=== PATIENT | female | born 1935 | race Caucasian/White ===

== ENCOUNTER 2019-09-24 07:49 | Day surgery (SDC) | payer MEDICARE, OTHER, SELFPAY ==
[2019-09-23 10:04] VITALS: BMI 35.4
[2019-09-24] MEDS: ACETAMINOPHEN 325 MG TABLET 975 MG PO (08:14)
[2019-09-24] MEDS: CELECOXIB 200 MG CAPSULE 400 MG PO (08:14)
[2019-09-24] MEDS: GABAPENTIN 300 MG CAPSULE PO (08:14)
[2019-09-24] MEDS: LACTATED RINGERS 1,000 ML 42 ML IV ×2 (08:15→10:47)
[2019-09-24 08:16] VITALS: BP 178/91; PULSE 74; RESP 15; TEMP 36.6; O2SAT 96; BMI 33.9
--- NOTE | 2019-09-24 08:41 | PM.PREOP ---
Pre-operative Note Interval Note History & Physical reviewed/Exam performed by Physician: Yes Changes to H&P: No
--- NOTE | 2019-09-24 08:41 | PM.OP.1 ---
Operative Date/Time/Diagnoses Date of procedure: 09/24/19 Time of procedure: 08:41 Pre-op diagnosis: Right lateral foot pain, arthritis, impingement Post-op diagnosis: same Procedure & Clinicians Procedure: Right fifth tarsometatarsal and calcaneocuboid arthroplasty with soft tissue graft interposition Same procedure as scheduled: Yes Indications: Painful lateral foot with arthritic changes. Conservative measures failed to alleviate the pain and she wished to have surgical intervention at this time. No contraindications to the procedure at this time. Surgeon: Cassie Hurst Click Yes if Unassisted: Yes Anesthesia Type: General Operative Notes Closure Type: primary Specimen(s): none sent Applied: graft(s) (Integra Reinforcement Matrix ) Estimated Blood Loss (mL): 20 Blood products transfused: none Tourniquet time (min): 59 Procedure in detail: The patient was brought to the operating room and placed on the operating table in the supine position. The tourniquet was placed about the right thigh. Well-padded, appropriately aligned. After induction of anesthesia the right foot and ankle were prepped and draped in the usual aseptic manner. The tourniquet was inflated. Incision was made over the fifth nlepdujbns-hhgubn-jvjghdquu joint. The incision was deepened through subcutaneous tissues being careful to identify and retract all vital neurovascular structures. All bleeders were cauterized and ligated as necessary. Attention was then directed to the calcaneocuboid joint to start and it was noted to have a little bony bossing on the lateral and dorsal portion of the joint. The decision was made to enter this area as she has had pain in this local joint. Entering it it was quite tight where this was located and sharp debridement was performed to allow for a little more opening here and reduction of impingement. Rongeur, osteotome, curette, and manual rasp were used to create less impingement and smooth surface preparation on either side of this joint. The area was irrigated with copious amounts of normal saline. Next the was checked on mini-C-arm to verify location of this joint and the fifth metatarsal-cuboid joint. Next the fifth metatarsal-cuboid joint was entered. Entering it it was quite also quite tight and once again, to allow for a little more opening here and reduction of impingement, a rongeur, osteotome, curette, and manual rasp were used to create less impingement and smooth surface preparation on either side of this joint. The area was irrigated with copious amounts of normal saline. The soft tissue graft was measured for each location and placed in each area with good amount of the space being filled and the graft acting as a cushion, without too much pressure. The surround soft tissues were used to cover over each of these areas to also allow for security of the graft and 3-0 vicryl was used to stabilize and sew it to. No unusual prominences noted and it laid flat in each joint space well. Final C-arm picture was taken. At this point, the tourniquet was deflated and a prompt hyperemic response was seen to the foot. On each of the incisions, the subcutaneous closure was performed using Vicryl and nylon was used to close the skin. A sterile lightly compressive dressing was placed on the foot and placed in a postoperative boot. Pt was transferred to the PACU with vital signs stable and vascular status intact. Complications: none Post-operative Condition: stable Disposition: PACU Plan for aftercare: Following a period of postoperative monitoring, the patient will be discharged to home on written and oral postoperative instructions including keeping the dressing dry and intact, avoiding significant ambulation on the foot, however partial WB with her walker is ok. Icing and elevating the foot when seated home. DVT prevention techniques have been reviewed. For the 1st postoperative visit the dressing will be changed and close to the 3rd postoperative week we will likely remove the sutures.
[2019-09-24] MEDS: CEFAZOLIN 2 GM/100 ML FROZ.PIGGY IV (08:58)
--- NOTE | 2019-09-24 09:35 | SUR.OPER ---
Supine on padded OR bed, head on pillow, arms secured on padded arm boards at <90 degrees abduction, legs uncrossed, safety belt at thigh, tape over blanket over lower legs. gel bump under righ thigh
[2019-09-24] MEDS: BUPIVACAINE 0.5% (PF) VIAL 5 ML SUBCUT (09:41)
[2019-09-24 10:57] VITALS: BP 161/67; PULSE 81; RESP 16; TEMP 37.2; O2SAT 92
[2019-09-24 11:02] VITALS: BP 140/76; PULSE 82; RESP 19; O2SAT 93
[2019-09-24 11:05] VITALS: BP 135/83; PULSE 79; RESP 13; O2SAT 94
[2019-09-24 11:12] VITALS: BP 143/73; PULSE 79; RESP 12; TEMP 36.9; O2SAT 94
[2019-09-24 11:30] VITALS: BP 154/85; PULSE 86; RESP 16; TEMP 36.2; O2SAT 94
== END 2019-09-24 11:40 | disposition home or self-care (01) ==
LOC: OR 07:51
PROVIDERS: Family Provider Internal Medicine; PCP Internal Medicine; Referring Provider Internal Medicine; Visit Provider Podiatrist
PROC: (CPT 26535; principal; 2019-09-24 08:45)
DX: M19.071 Primary osteoarthritis, right ankle and foot (principal); M25.871 Other specified joint disorders, right ankle and foot; I10 Essential (primary) hypertension; R55 Syncope and collapse; R42 Dizziness and giddiness; K21.9 Gastro-esophageal reflux disease without esophagitis
CPT/HCPCS: 28899; J0690; J1100; J2405; J2704; J3010

== ENCOUNTER → 2023-12-31 11:42 | Outpatient (CLI) | payer MEDICARE, OTHER, SELFPAY ==
--- NOTE | 2023-12-31 12:22 | EKG_ITS ---
[address] [address] Test Date: 2023-12-31 Pat Name: Yecenia Ramirez Department: Room: Gender: Female Import Manager: KSENIA : [id number] Requested By: Order Number: [id number] Reading MD: Gonzalez Lees Measurements Intervals [place] Rate: 65 P: 50 ME: 174 QRS: 95 QRSD: 94 T: 38 QT: 420 QTc: 436 Interpretive Statements Sinus rhythm with premature supraventricular complexes Rightward axis Electronically Signed On 12-31-2023 18:40:23 PDT by Gonzalez Lees
[2023-12-31 12:58] LABS: Add Manual Diff / Slide Review NO; Basophils Absolute Auto 100 /uL (0-100); Basophils Percent Auto 1.1 % (0-2); Eosinophils Absolute Auto 200 /uL (0-450); Eosinophils Percent Auto 3.5 % (2-4); Hematocrit 40.6 % (36-46); Hemoglobin 13.7 g/dL (12.0-16.0); Lymphocytes Absolute Auto 2300 /uL (1100-4500); Lymphocytes Percent Auto 40.1 % (25-40); Mean Corpuscular HGB Conc 33.8 % (30-36); Mean Corpuscular Hemoglobin 32.4 PG (26-34); Mean Corpuscular Volume 95.8 fL (80-100); Monocytes Absolute Auto 400 /uL (0-900); Monocytes Percent Auto 7.5 % (3-14); Neutrophils Absolute Auto 2800 /uL (1500-7000); Neutrophils Percent Auto 47.8 % (50-75); Platelet Count 292 X10^3/uL (150-400); Red Blood Cell Count 4.24 X10^6/uL (4.0-5.2); Red Cell Distribution Width 13.2 % (11.6-14.8); White Blood Cell Count 5.8 X10^3/uL (4.5-11.0)
[2023-12-31 13:17] LABS: Hemoglobin A1C% w Est Avg Glu 5.7 % (4.0-6.0)
[2023-12-31 13:24] LABS: Albumin 4.8 g/dL (3.5-5.0); BUN Creatinine Ratio 26.3 (6-22); Blood Urea Nitrogen 30 mg/dL (7-17); Calcium 9.8 mg/dL (8.4-10.2); Carbon Dioxide 28 mmol/L (22-32); Chloride 108 mmol/L (98-107); Estimated Glomerular Filt Rate 47 mL/min (>60); Glucose 103 mg/dL (80-110); HEMOLYSIS < 15 (0-50); Potassium 4.6 mmol/L (3.4-5.1); Sodium 141 mmol/L (137-145)
[2023-12-31 13:31] LABS: Prealbumin 35.2 mg/dL (17.6-36.0)
[2023-12-31 16:24] LABS: Vitamin D 25 Hydroxy (D3) 56.1 ng/mL (30.0-100.0)
== END ==
LOC: RESP 11:46
PROVIDERS: Family Provider Internal Medicine; PCP Internal Medicine; Referring Provider Orthopaedic Surgery Adult Reconstructive Orthopaedic Surgery; Visit Provider Orthopaedic Surgery Adult Reconstructive Orthopaedic Surgery
DX: Z01.818 Encounter for other preprocedural examination (principal); R73.9 Hyperglycemia, unspecified; E55.9 Vitamin D deficiency, unspecified; R77.0 Abnormality of albumin; Z01.812 Encounter for preprocedural laboratory examination
CPT/HCPCS: 36415; 80048; 82040; 82306; 83036; 84134; 85025; 93005

== ENCOUNTER 2024-01-23 09:16 | Day surgery (SDC) | payer MEDICARE, OTHER, SELFPAY ==
[2024-01-12 13:45] VITALS: BMI 32.5
[2024-01-23] VITALS (13 sets, daily range): BP systolic 107–175; BP diastolic 44–78; PULSE 61–98; RESP 12–18; TEMP 36.3–37.2; O2SAT 84–98; BMI 31.4; BMI 33.5
--- NOTE | 2024-01-23 06:00 | DI.RAD.S_ITS ---
PROCEDURE: XR HIP W PEL IF DONE LT 2V INDICATIONS: YESSENIA intraoperative TECHNIQUE: 2 view(s) of the hip acquired. COMPARISON: None. FINDINGS: Bones: Patient is undergoing left hip arthroplasty, with hardware components in expected positions. The hip joint appears congruent. The visualized bony structures appear intact. Soft tissues: Overlying intraoperative changes are noted. No suspicious soft tissue densities. IMPRESSION: Expected intraoperative appearance during final phases of left total hip arthroplasty. Dictated by: Wes Nunez M.D. on 01/23/2024 at 16:21 Approved by: Wes Nunez M.D. on 01/23/2024 at 16:22
[2024-01-23] MEDS: LACTATED RINGERS 1,000 ML 42 ML IV ×2 (09:54→12:31)
[2024-01-23] MEDS: ACETAMINOPHEN 325 MG TABLET 975 MG PO (09:54)
[2024-01-23] MEDS: MELOXICAM 7.5 MG TABLET 15 MG PO (09:55)
--- NOTE | 2024-01-23 10:59 | P.HP_ITS ---
History of Present Illness History of Present Illness Date Patient Seen: 01/23/24 Chief complaint: Left YESSENIA anterior *OPB* Narrative: 88-year-old female presents for planned left total hip arthroplasty. No changes in health since she was last seen [facility] Medical History (Updated 01/23/24 @ 11:00 by Gigi Villalobos MD) Anesthesia complication Hearing loss Presence of neurostimulator (05/2023) Vertigo Irritable bowel syndrome with diarrhea Easy bruisability Shingles Lichen planus DDD (degenerative disc disease) Hypothyroid Presence of neurostimulator Esophageal dysmotility Dysphagia Mastocytic enterocolitis (2016) Colon polyps Hemorrhoids Hiatal hernia Chest pain, non-cardiac Syncope Orthostatic hypotension Urinary incontinence Diverticulosis GERD (gastroesophageal reflux disease) HLD (hyperlipidemia) HTN (hypertension) SOB (shortness of breath) 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 Glaucoma Vasovagal syncopes Concussion (07/2016) Generalized headaches Surgical History (Updated 01/12/24 @ 14:25 by Bee Hooker RN) History of bilateral oophorectomy S/P epidural steroid injection (09/2021) 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) Hx of foot surgery Hx of thyroidectomy S/P foot surgery, right (11/22/16) Hx of laminectomy History of arthroscopy of right shoulder History of prosthetic unicompartmental arthroplasty of right knee Hx of arthroscopy of right knee Hx of thumb surgery S/P foot surgery, left History of tonsillectomy and adenoidectomy History of lumpectomy of both breasts History of bladder surgery Hx of BSO (bilateral salpingo-oophorectomy) Hx of dilation and curettage Hx of removal of cyst History of esophagogastroduodenoscopy (EGD) Hx of colonoscopy Hx of appendectomy Hx of cholecystectomy History of hysterectomy History of corneal transplant Hx of bilateral cataract extraction History of surgery Status post reverse arthroplasty of right shoulder (08/11/17) Social History household members: spouse Smoking Status: Never smoker alcohol intake: former Meds Home Medications and Allergies Home Medications Medication Instructions Recorded Confirmed Type midodrine 10 mg tablet 10 mg PO DAILY ##0 11/15/16 01/23/24 History multivitamin (Multiple Vitamins 1 tab PO QDAY ##0 08/04/17 01/23/24 History tablet) losartan 50 mg tablet 50 mg PO BEDTIME ##0 08/11/17 01/23/24 History levothyroxine 125 mcg tablet 125 mcg PO DAILY 09/23/19 01/23/24 History (Synthroid) pantoprazole 40 mg tablet,delayed 40 mg PO DAILY 09/23/19 01/23/24 History release paroxetine HCl 10 mg tablet (Paxil) 10 mg PO DAILY Vasovagal syncope 09/23/19 01/23/24 History polyethylene glycol 3350 17 17 g PO DAILY 09/23/19 01/23/24 History gram/dose oral powder (Miralax) famotidine 40 mg tablet 40 mg PO DAILY 01/12/24 01/23/24 History prednisolone acetate (PF) 1 % eye 1 drp EYE-LEFT QID 01/12/24 01/23/24 History drops,suspension tafluprost (PF) 0.0015 % eye drops 1 drp ophthalmic (eye) BEDTIME 01/12/24 01/23/24 History in a dropperette (Zioptan (PF)) Allergies Allergy/AdvReac Type Severity Reaction Status Date / Time latanoprost [LATANOPROST] Allergy Severe SEVERE Verified 01/23/24 10:23 ERYTHEMA acetazolamide [ACETAZOLAMIDE] Allergy Intermediate EYELID Verified 01/23/24 10:23 SWELLING bimatoprost [BIMATOPROST] Allergy Intermediate EYELID Verified 01/23/24 10:23 SWELLING brimonidine [BRIMONIDINE] Allergy Intermediate EYELID Verified 01/23/24 10:23 SWELLING dorzolamide [DORZOLAMIDE] Allergy Intermediate EYELID Verified 01/23/24 10:23 SWELLING timolol [TIMOLOL] Allergy Intermediate EYELID Verified 01/23/24 10:23 SWELLING oxycodone AdvReac Severe Vivid/bad Verified 01/23/24 10:23 dreams adhesive tape AdvReac Mild Redness Verified 01/23/24 10:23 the old kind atenolol [ATENOLOL] AdvReac Mild SOB Verified 01/23/24 10:23 W/EXERTION lisinopril [LISINOPRIL] AdvReac Mild COUGH Verified 01/23/24 10:23 Review of Systems Review of Systems ROS: Yes All systems reviewed with the patient and are negative except as otherwise documented Exam Vital Signs (past 8 hours): - 01/23/24 10:12 Temperature 98.9 F Pulse Rate 66 Respiratory Rate 18 Blood Pressure 175/78 H Pulse Oximetry 98 Oxygen Delivery Method Room Air Oxygen Delivery Method Room Air Const General: cooperative Orientation: alert and awake HENIL Head: normal to inspection Ears: hearing grossly normal bilaterally Eyes General: appearance normal, both eyes and all related structures Neck Neck: normal visual inspection Resp Effort & Inspection: normal respiratory effort and able to speak in complete sentences Cardio Pulses: other (peripheral pulses present) Skin Lesions: no lesions Rashes: no rashes Neuro General: patient alert, patient awake and moves all extremities Psych Appearance: grossly normal Assessment & Plan Assessment and plan (1) Arthritis of left hip: Status: Acute Plan Left total hip arthroplasty to be performed today. Patient will be admitted postoperatively Time-Based Coding :: [TOTAL MINUTES] spent with patient and on the chart (including review of chart, obtaining history, exam, reviewing outside data, placing orders, documenting exam and treatment plan, and counseling patient) on [DATE].
[2024-01-23] MEDS: CEFAZOLIN 2 GM/100 ML PREMIX 100 ML IV ×2 (11:30→20:28)
[2024-01-23] MEDS: TRANEXAMIC ACID 1,000 MG in SODIUM CHLORIDE 0.9% 100 ML 200 MG IV ×2 (11:30→13:02)
--- NOTE | 2024-01-23 11:50 | SUR.OPER ---
Patient supine on padded [place] table, both arms on padded arm board at <90, both legs secured in padded traction boots and positioned per surgeon, padded post at patient's groin, pressure points checked and padded.
[2024-01-23] MEDS: ROPIVACAINE/EPI/CLONIDINE/KET 50 ML SYRINGE INJ (11:59)
--- NOTE | 2024-01-23 13:12 | PM.OP.1 ---
Operative Date/Time/Diagnoses Date of procedure: 01/23/24 Pre-op diagnosis: Left hip osteoarthritis Post-op diagnosis: same Procedure & Clinicians Procedure: Left total hip arthroplasty Same procedure as scheduled: Yes Surgeon: Gigi Villalobos Deicer Finisher: Elen Barnhart Anesthesia Type: General and Local Operative Notes Estimated Blood Loss (mL): 250 Procedure in detail: Left Uncemented Direct Anterior Depuy Total Hip Arthroplasty: Implants: Hewett Gription size 54 cup?with 2 screws Actis femoral stem size 6 standard offset? 36 mm +5 ceramic femoral head? Procedure Summary: This 88-year-old female patient is in relatively good health despite her advanced age. Her preoperative workup was noteworthy only for vasovagal episodes with no identified cardiac or pulmonary issues causing them. Because of her vasovagal episodes I strongly considered the use of cement in her case, however a DEXA scan which I obtained for preoperative planning purposes indicated that she had a T-score of 0.2. This aligned with her AP pelvis x-ray which demonstrated Ludy B bone and my intraoperative findings which demonstrated very good bone quality. Based on these factors I elected to use uncemented fixation in her case. I used a triple taper collared stem and some recent registry studies have demonstrated that the fracture risk associated with collared stems may actually be lower than the fracture risk associated with cemented stems in the elective setting. Intraoperatively I found that she had very good pinch fit with her 54 mm cup, but did place 2 screws for supplementary fixation. I initially trialed with a 7 standard offset and +1.5 head. I found that the reduction was very challenging and the AP pelvis x-ray indicated that she was considerably long relative to the nonoperative side. On her AP hip and lateral hip radiographs it did not appear that I could sink the size 7 broach any further. I therefore downsized to a size 6 broach in order to sink it further down the femur. I was able to sink it approximately 7 mm. Repeating the trialing process I had instability with a +1.5 head so I upsized to a +5 head which had good stability. These final implants were then utilized. Procedure in Detail: This patient was seen preoperatively and evaluated for hip pain which was refractory to numerous nonoperative treatment modalities. Their hip pain correlated with radiographic changes demonstrating significant degeneration in the hip joint. The risks and benefits of continued nonoperative management versus operative management were discussed at length and all of the patient?s questions were answered. Additional educational materials providing further details beyond our discussion in clinic were provided via a publicly available patient education video which included the incidence of medical complications associated with total hip arthroplasty, reasons for revision following total hip arthroplasty, and patient satisfaction rates following total hip arthroplasty. That video can be accessed at [email or web address] . With this understanding of the risks inherent to the procedure, the patient elected to move forward with operative management. Following preoperative optimization, the patient was scheduled for surgery. The patient was met in the preoperative holding area the day of the procedure and all questions were answered. The patient?s nares were swabbed with betadine in order to decolonize them from MRSA. Informed consent was signed and the left limb was marked with indelible ink.? The patient was brought back to the operating room where anesthesia was induced. The patient was transferred to the [place] table and all bony prominences were padded. The operative site was prepped and draped in the usual sterile fashion. Prior to incision, tranexamic acid and cefazolin were administered. Operative templating images were displayed demonstrating the anticipated implant sizes and correct operative extremity. A timeout procedure was performed verifying the patient?s identity, medical comorbidities, allergies, relevant medications, anesthesia type and the surgical plan. All present were in agreement. The assistance of a physician campaign assistant was required for positioning, room setup, soft tissue retraction and wound closure. Without this assistance, the procedure would have been significantly more challenging and time consuming.?? A direct anterior approach to the hip was utilized. This was performed with a longitudinal incision through a Heuter interval. The incision was planned 2 cm distal and 2 cm lateral to the ASIS extending towards the lateral patella, in line with the muscle body of the TFL. Following incision, the subcutaneous tissue was dissected while taking care to avoid injury to the lateral femoral cutaneous nerve. The fascia overlying the TFL was identified by dissecting off the overlying fat and identifying perforating vessels to the TFL. The TFL fascia was incised and dissected away from the medial border of the TFL. A cobra retractor was placed over the superior femoral neck between the abductors and the hip capsule and used to reflect the TFL laterally. A [place] self-retainer was then placed in the distal aspect of the wound between the TFL and the rectus femoris. This was tensioned to open up the direct anterior interval and the lateral circumflex vessels were identified and coagulated using electrocautery. The floor of the TFL fascia was incised, exposing the pericapsular fat overlying the hip capsule. A second cobra retractor was placed on the inferior femoral neck. A double-bent soft tissue retractor was placed on the anterior wall of the acetabulum and used to tension the reflected head of rectus femoris, which was then released in order to limit soft tissue tension. A capsulotomy was made in the midline of the anterior hip capsule in line with the femoral neck ending at the vastus tubercle. The double-bent retractor was removed in order to limit the amount of time that a soft tissue retractor remained on the anterior wall and protect the femoral nerve. Tag stitches were placed in the superior and inferior leaflets of the hip capsule. An Vic soft tissue retractor was introduced over the tag stitches and tensioned in the interval between the rectus femoris and the TFL in order to retract and protect those muscles. The cobra retractors were replaced intracapsularly, with one over the superior neck in the pocket created by the base of the greater trochanter and the other on the femoral head. The capsulotomy was extended laterally to the base of the greater trochanter and medially to the lesser trochanter. This required externally rotating the hip. Once the lesser trochanter had been identified, a neck cut was planned according to measurements from preoperative templating. A ruler was cut at the length measured between the superior aspect of the lesser trochanter and the collar of the prosthesis. This line was extended towards the inferior aspect of the lateral cobra retractor to plan a cut which would leave minimal residual femoral neck laterally. The neck was cut at 60 degrees of external rotation along that line. A second cut was performed to remove a large napkin ring and facilitate head extraction. The napkin ring cut and femoral head were removed.?? A broad anterior wall retractor was placed between the labrum and the anterior capsule so that the anterior capsule would prevent capturing and pinching the femoral nerve anteriorly. An additional retractor was placed on the posterior wall. External rotation and traction were applied through the [place] table so that the cut surface of the femoral neck would not restrict access to the acetabulum. The labrum was excised sharply and the pulvinar was excised with electrocautery to limit bleeding from branches of the obturator artery. Acetabular reamers were selected based on preoperative templating and measurements of the excised femoral head. These were introduced into the acetabulum. Fluoroscopy was utilized to replicate a standing AP pelvis radiograph by centering over the pelvis, rotating until there was appropriate symmetry between the obturator foramen, and introducing caudal tilt to match the position of the pubic symphysis relative to the sacrococcygeal junction according to the patient?s anatomy. Fluoroscopy was utilized to ensure appropriate reaming depth. Once satisfied with the reaming depth corresponding to the preoperative template and the pinch fit between the columns, an appropriate sized acetabular cup was selected which would provide 1 mm of press-fit. This cup was introduced and manipulated until appropriate abduction and anteversion angles were obtained with careful attention to appropriate abduction and anteversion angles as evaluated by the position of the cup relative to the anterior and posterior arreaga of the acetabulum and the AP fluoroscopy which recreated the patient?s standing radiograph. The cup was impacted into place. Two screws were placed and correct position was verified fluoroscopically. Peripheral osteophytes were removed. The acetabular liner was then placed with care to ensure locking of the locking mechanism.? Attention was then turned to the femur. All retractors were removed, traction was released, a retractor was placed in the interval between the hip capsule and the gluteus minimus, and the hip was externally rotated to 90 degrees. Traction was applied through the [place] table to tension the lateral capsule and this was released using electrocautery. Traction was released and a [place] hook was placed posteriorly around the proximal femur at the level of the vastus ridge. The table height was lowered in order to restrict the tension on the anterior structures during hip hyperextension to limit the risk of femoral nerve palsy. With traction off and the hip at 90 degrees of external rotation, the hip was hyperextended and adducted while manually elevating the femur away from the acetabulum with the [place] hook to ensure it would not be caught behind the greater trochanter. An asymmetric retractor was placed over the calcar and a broad double-pronged retractor was placed over the greater trochanter. The tag stitch capturing the lateral leaflet of the capsule was moved to the medial side, leaving the conjoined and piriformis tendons isolated in the face of the greater trochanter. The hip was externally rotated and elevated. A release of the conjoined tendon was not necessary in order to obtain adequate exposure for broaching. The canal was opened with an opening broach and a rasp was used to remove cancellous bone. A rongeur was used to remove the residual lateral bone at the base of the greater trochanter to avoid placing the stem in varus. The femur was then broached to the appropriate sized stem yielding good rotational fit and fill of the canal as well as appropriate version of the stem trial. Neck and head trials were placed, all retractors were removed and the hip was returned to neutral abduction and extension. I then reduced the hip. Initial trialing was performed with a size 7 broach, a standard offset neck and a +1.5 head. I initially manually externally rotated the hip and found that I could not manually dislocate it. It was a very challenging reduction. I was able to reduce it without aid through the fracture table while pushing on the foot, after which I changed my gloves, but I had to push significantly harder in order to achieve a reduction then is normal. I then locked the hip in 45 degrees of external rotation and dropped it to the floor with traction off which demonstrated no instability. An AP pelvis fluoroscopic image matching the preoperative standing radiograph with both lesser trochanters visible and both hips in 40 degrees of external rotation demonstrated that the operative site was considerably long relative to the nonoperative side when using a long metal bar across the transitional line to count for fluoroscopic distortion. AP and lateral hip fluoroscopic images were obtained to evaluate the broach size which demonstrated that the size 7 broach completely filled the canal and that my neck cut was longer than I had templated for. The hip was dislocated and I returned to the broaching position. Based on my evaluation during initial trialing I planned to downsize to a size 6 broaches I did not think I would be able to sink the size 7 broach any farther down the canal. I removed the size 7 broach, sink the size 6 broach approximately 7 mm, and repeated calcar planing. I trialed again with this construct. I initially used a standard offset neck and a +1.5 head but found that it dislocated around 110? of manual external rotation through the foot. I therefore switched it to a +5 head which resolved the instability as I was able to manually rotate to 125?. I it was stable with a 45 degree drop test and length appeared appropriate fluoroscopically. I therefore plan to place these implants. I returned to the broaching position.. The definitive stem was placed and the trunnion was cleaned and dried. I placed a ceramic head onto the trunnion and impacted it into place on the [place] taper.?? All retractors were removed and the hip was reduced. A dilute mixture of betadine and peroxide was used to bathe the soft tissues during final fluoroscopic assessment. Appropriate component positioning was confirmed on an AP pelvis radiograph with the operative and nonoperative legs in 40 degrees of external rotation, evaluating leg length and offset. Appropriate stem fill was evaluated on AP and lateral hip radiographs. No fractures were identified on these radiographs. There was no hip instability with 125? external rotation as well as a 45 degree drop test. The hip was copiously irrigated with pulse lavage. The capsule was closed with absorbable interrupted suture. The TFL fascia was closed with barbed suture while carefully protecting the lateral femoral cutaneous nerve from entrapment. A mixture of Ropivacaine, Epinephrine, Clonidine and Toradol was infiltrated throughout the soft tissues. The skin was closed with 2-0 and 3-0 sutures. Surgical glue was applied and a soft dressing was placed.??The sponge, instrument and needle counts were reported as being correct at the end of the case.??No obvious complications occurred. The patient was transferred from the [place] table back to a stretcher. The patient emerged from anesthesia without difficulty and was taken to the PACU in a stable condition.? Plan for aftercare: Anterior hip precautions Weightbearing as tolerated Aspirin 81 twice per day for DVT prophylaxis Anticipate discharge home tomorrow. Given the patient's vasovagal episodes I do not want her to discharge home until we are very certain that she is not going to have any orthostatic hypotension as fall prevention is of paramount importance for her Change into normal clothes upon arrival on the hospital floor Mobilize in the halls as much as is logistically possible. If physical therapy is unavailable for mobilization, then patient should mobilize with nursing staff Multimodal pain regimen with no IV opioids ordered Apply ice machine to operative hip. Ensure that sufficient ice is in the chamber for the pad to remain cold Follow up at [facility] in 2 weeks Detailed postoperative instructions available at [email or web address]
--- NOTE | 2024-01-23 14:00 | DI.RAD.S_ITS ---
PROCEDURE: XR HIP W PEL IF DONE LT 2V INDICATIONS: LT TOTAL HIP TECHNIQUE: 2 view(s) of the hip acquired. COMPARISON: [facility], CR, XR HIP W PEL IF DONE LT 2V, 01/23/2024, 12:16. FINDINGS: Bones: Patient is status post left hip arthroplasty, with hardware components in expected positions. Of note, the tip of the screw in the left iliac bone is not seen on AP view. The hip joint appears congruent. Moderate right femoroacetabular joint space narrowing and juxta-articular osteophytosis. The visualized bony structures appear intact. Soft tissues: Overlying postoperative changes are noted. No suspicious soft tissue densities. IMPRESSION: 1. Visualized portion of the left hip arthroplasty is intact without complication. Anatomic alignment. 2. Moderate right hip osteoarthritis. Dictated by: Artur Galvan M.D. on 01/23/2024 at 16:43 Approved by: Artur Galvan M.D. on 01/23/2024 at 16:44
[2024-01-23] MEDS: ACETAMINOPHEN 325 MG TABLET 650 MG PO ×2 (14:51→20:29)
[2024-01-23] MEDS: IBUPROFEN 600 MG TABLET PO ×2 (14:51→20:30)
[2024-01-23] MEDS: LACTATED RINGERS 1,000 ML 100 ML IV (14:51)
[2024-01-23] MEDS: PREDNISOLONE ACETATE 1% 1 EACH EYE-LEFT ×2 (17:09→20:31)
--- NOTE | 2024-01-23 17:59 | PT-IP ANOTE ---
PT rashawn received and EMR reviewed. checked on pt and obtained PLOF and home set up but pt refused PT. stated that she just wants to rest but agreed to do PT tomorrow. informed pt to have her spouse present tomorrow if caregiver training is needed. pt agreed and will inform spouse to come in at ~ 10 am tomorrow.
--- NOTE | 2024-01-23 18:44 | PC.NURSE ---
Addendum entered by Michelle Thomas R.N. 01/23/24 18:57: Correction: DTV 2100 Original Note: Day shift Pt arrived on floor, VSS, pain controlled with PRN medication and non-pharmacologic measures. Pt due to void at 1900, RN scanned bladder and 250 in bladder. Pt did not feel like bladder was distended. RN recommended to patient several times to get out of bed to try to void, and pt declined. Dressing C/D/I, neurovascular intact LLE.
[2024-01-23] MEDS: DOCUSATE 100 MG CAPSULE PO (20:29)
[2024-01-23] MEDS: TAFLUPROST 0.0015% 1 EACH EYE-RIGHT (20:33)
[2024-01-24] MEDS: LACTATED RINGERS 1,000 ML 100 ML IV (00:13)
[2024-01-24] MEDS: IBUPROFEN 600 MG TABLET PO ×2 (02:20→08:35)
[2024-01-24] MEDS: ACETAMINOPHEN 325 MG TABLET 650 MG PO ×2 (02:21→08:34)
[2024-01-24] MEDS: CEFAZOLIN 2 GM/100 ML PREMIX 100 ML IV (03:47)
[2024-01-24] MEDS: LEVOTHYROXINE 125 MCG TABLET PO (05:28)
[2024-01-24 05:54] LABS: Hemoglobin 10.6 g/dL (12.0-16.0)
[2024-01-24 08:00] VITALS: BP 130/61; PULSE 79; RESP 14; TEMP 37.4; O2SAT 96
[2024-01-24] MEDS: DOCUSATE 100 MG CAPSULE PO (08:33)
[2024-01-24] MEDS: MIDODRINE HCL 5 MG TABLET 10 MG PO (08:34)
[2024-01-24] MEDS: PARoxetine 20 MG TABLET 10 MG PO (08:34)
[2024-01-24] MEDS: PANTOPRAZOLE DR 40 MG TABLET PO (08:34)
[2024-01-24] MEDS: FAMOTIDINE 20 MG TABLET PO (08:35)
[2024-01-24] MEDS: MULTIVITAMIN 1 TABLET 1 TAB PO (08:35)
[2024-01-24] MEDS: ASPIRIN EC 81 MG TABLET PO (08:35)
[2024-01-24] MEDS: PREDNISOLONE ACETATE 1% 1 EACH EYE-LEFT (08:36)
[2024-01-24] MEDS: SODIUM CHLORIDE 0.9% FLUSH 10 ML IV (08:36)
--- NOTE | 2024-01-24 09:21 | CM.DANOTE ---
Initial DCP Assessment Visit Note Reviewed EMR and team rounds for status updates. Met with pt at bedside to introduce self and role, pt was found to be alert, oriented, sitting upright in her recliner, expressing readiness for home d/c after working with PT this morning. Her will arrive by 10:00am for cg training. Pt lives modified independently with her in their own home in [place], he will plan on driving her home as well. Payor: Medicare Attending: Dr. Villalobos Pt is a 88 year-old F post-op day 1 from a L-total hip arthroplasty surgery. Pt has had several surgeries over the last several years, she has several pieces of DME at home, and already has set-up her OP PT as well. No DCP assistance needs are identified at this time. Will continue to monitor for any further evolving needs/recommendations prior to her departure. Discharge Planning/Care Management CM Discharge Assessment Start: 01/24/24 09:19 Freq: Status: Active Protocol: Document 01/24/24 09:19 DPL (Rec: 01/24/24 09:21 DPL [id number]) Discharge Planning Assessment Assigned Woodworker Helper [place] Advance Directives? Yes Advance Directives on File Yes History Provided By Patient,Medical Record Has Patient been admitted in last 30 No days? Prior Living Arrangements House Household Members spouse Type of transporation used prior to Relies on Others admit Independent with ADL's No: modified independent with a walker Is patient alert and oriented? Yes Needs Assistance With Home Chores / Shopping Caregiver for Another No DME Already Rented / Owned Bath Bench,Elevated Toilet Seat,FWW / Walker Patient/Family Preference OP PT Therapy Barriers to Discharge No Discharge Plan Home Referrals Initiated None needed Whiteboard Updated in Patient Room with Yes name and ext. # of Woodworker Helper Review Status In Process Please Provide Date Initial DC 01/24/24 Assessment Was Performed Pre-Anesthesia Assessment Start: 01/12/24 13:45 Freq: Status: Complete Protocol: Document 01/12/24 13:45 CAB (Rec: 01/12/24 15:02 CAB [id number]) Pre-Anesthesia Assessment PAC Comment Pt has neurostimulator, will bring remote to turn off prior to surgery Preferred Name Pat Patient Information Reviewed Via Phone Assessment Assessment Completed With Patient Diagnostic Results BMP/CMP,CBC,EKG Comment Labs/EKG @ 12/31/23 Primary Care Provider Nora Hartmann Comment Pre-op 12/25/23 Seen Specialist in Last 12 Months Yes Specialist Seen Secondary School Registrar,Orthopedist, Urologist Primary Language Moldovan Finish Patcher Required No Height 162.56 cm Weight 86.183 kg Body Mass Index (BMI) 32.5 Hearing Ability Hearing Impaired,Use of Hearing Aid Visual Assist Glasses Dentition Type Teeth, Missing Barriers to Learning Auditory,Memory,Visual Hx Anesthesia Reactions Yes: PONV, nothing recent Hx Family Anesthesia Reaction No Hx Malignant Hyperthermia No Hx Blood Transfusions No Anesthesia Review Requested No 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 No Does patient have [place]/SOB Yes Hx Sleep Apnea No CPAP/BIPAP use not prescribed Currently Taking a Beta Odin No Can You Climb a Flight of Stairs Without No SOB Hx Chest Pain No Hx SOB Yes Hx Syncope or Dizziness Yes: Mutliple vasovagel syncopal episodes Anti-Coagulant Therapy No Has a Secondary School Registrar Yes: Visit 02/21/[address]rar name Dr. Galaviz Cardiac Testing Echo @ [facility] 08/22/22 Hx Pacemaker/ICD No Pacemaker Rep Required? No Cardiac Clearance Received No Comment Cardiac records scanned and in surgery folder Diet Type At Home Regular Dysphagia No Gastrointestinal Symptoms Constipation,Reflux Bladder Pattern Frequency,Incontinent,Urgency Urinary Catheter Present No Hx Urinary Self Catheterization No Comment Neurostimulator implant for bladder Diabetes No HgbA1C 5.8 Date 12/18/23 Patient No Lactating No Hx Drug Resistant Organism No Presence of External or Internal Medical Yes: Neurostimulator implant, Devices polly. eye lens, bladd. sling, Rt knee, R shoul Marital Status Lives With spouse Current Living Arrangements House Number of Floors (Floors) One Floor Support System Spouse Does the Patient Have Assistance After Yes Surgery Patient Discharge Plan Description Return Home Comment Pt not advised on length of stay per surgeon Feels Safe in Current Environment Yes Been Physically Hurt or Threatened By a No Person in Current Environment Do you have thoughts of harming yourself None or others? Are you currently considering suicide? No Do you have a plan to hurt yourself or No Plan others? Do You Have Any Spiritual Beliefs That No May Affect Your HC Choices? Do You Have Any Cultural Practices That No May Affect Your HC Choices? Comment Zoroastrian Who Can We Speak to About Patient's Care Family, friends Identifying Code for Release of Patient Declines to issue Information Health Care Proxy/Next of Kin Moisés () Health Care Proxy Emergency Contact Name Gabriel (son) Emergency Contact Advance Directives? Yes Advance Directives on File Yes Power of Video Coordinator Yes Power of Video Coordinator Name Moisés Ramirez Power of Video Coordinator PAC Instructions Do not shave/clip surgical site,Durable medical equipment ,Medications to take/avoid, Nasal antibiotic,No ETOH/ petroleum product on skin DOS, NPO,Post-op transportation,Pre -surgical wash,Sensory aids, Sturdy shoes/comfortable clothes,Do not bring valuables and remove jewelry
--- NOTE | 2024-01-24 10:14 | PM.DS.1 ---
History of Present Illness History of Present Illness Date Patient Seen: 01/24/24 Time Patient Seen: 10:14 Chief complaint: Left YESSENIA anterior *OPB* Narrative: Patient states her hip pain is mild. Denies any fever or chills. No nausea or vomiting. Patient has assistance at home. Discharge Providers Provider Discharge Date: 01/24/24 Primary care physician: Nora Hartmann MD Consults: 01/23/24 06:00 Consult to Anesthesiology Routine Comment: Consulting Provider: Anesthesiologist Reason for consultation: Regional block for post operative pain control Has provider been notified: No 01/23/24 14:14 Consult to Discharge Planning Routine Comment: Consult to Occupational Therapy Evaluate & Treat Comment: Physician Instructions: Evaluate and treat Consult to Physical Therapy Evaluate & Treat Comment: Physician Instructions: post op YESSENIA protocol Discharge provider: Salvatore Valadez PA-C Summary Hospital Course Discharge Diagnosis: Left hip osteoarthritis Hospital Course: Left total hip arthroplasty Same procedure as scheduled: Yes Surgeon: [employer] Sales Consultant: Elen Barnhart Anesthesia Type: General and Local Operative Notes Estimated Blood Loss (mL): 250 Procedure in detail: Left Uncemented Direct Anterior Depuy Total Hip Arthroplasty: Implants: [place] Gription size 54 cup?with 2 screws Actis femoral stem size 6 standard offset? 36 mm +5 ceramic femoral head? Patient admitted to the hospital for the above-mentioned procedure. Patient consented to the same. Patient underwent left total hip arthroplasty January 23, 2024. Patient back in her room recovering well as in stable condition. Anterior hip precautions. Weightbearing as tolerated. Aspirin 81 mg b.i.d.. Multimodal pain management. Patient to mobilize with physical therapy and be discharged home after physical therapy if safe for home environment. Status at Discharge Cognitive/behavioral status at discharge: at baseline, oriented Functional status at discharge: uses cane/walker Exam Vital Signs (past 8 hours): - 01/24/24 08:00 Temperature 99.3 F Pulse Rate 79 Respiratory Rate 14 Blood Pressure 130/61 Pulse Oximetry 96 Oxygen Flow Rate 0 Oxygen Delivery Method Room Air Oxygen Flow Rate 0 Narrative Exam Narrative: 88-year-old female walking back to bed from the bathroom. She has not using a walker. Dressing is clean, dry and intact. Neurovascular status is intact bilateral lower extremities. Const General: cooperative and comfortable Nutritional Appearance: average body habitus Orientation: alert Resp Effort & Inspection: normal respiratory effort and able to speak in complete sentences Objective Labs 01/24/24 04:45 Labs: Laboratory Results - last 24 hr 01/24/24 04:45 Hgb 10.6 L Hct 31.0 L PFSH Medical History (Updated 01/23/24 @ 11:00 by Gigi Villalobos MD) Anesthesia complication Hearing loss Presence of neurostimulator (05/2023) Vertigo Irritable bowel syndrome with diarrhea Easy bruisability Shingles Lichen planus DDD (degenerative disc disease) Hypothyroid Presence of neurostimulator Esophageal dysmotility Dysphagia Mastocytic enterocolitis (2016) Colon polyps Hemorrhoids Hiatal hernia Chest pain, non-cardiac Syncope Orthostatic hypotension Urinary incontinence Diverticulosis GERD (gastroesophageal reflux disease) HLD (hyperlipidemia) HTN (hypertension) SOB (shortness of breath) 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 Glaucoma Vasovagal syncopes Concussion (07/2016) Generalized headaches Surgical History (Updated 01/12/24 @ 14:25 by Bee Hooker RN) History of bilateral oophorectomy S/P epidural steroid injection (09/2021) 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) Hx of foot surgery Hx of thyroidectomy S/P foot surgery, right (11/22/16) Hx of laminectomy History of arthroscopy of right shoulder History of prosthetic unicompartmental arthroplasty of right knee Hx of arthroscopy of right knee Hx of thumb surgery S/P foot surgery, left History of tonsillectomy and adenoidectomy History of lumpectomy of both breasts History of bladder surgery Hx of BSO (bilateral salpingo-oophorectomy) Hx of dilation and curettage Hx of removal of cyst History of esophagogastroduodenoscopy (EGD) Hx of colonoscopy Hx of appendectomy Hx of cholecystectomy History of hysterectomy History of corneal transplant Hx of bilateral cataract extraction History of surgery Status post reverse arthroplasty of right shoulder (08/11/17) Social History household members: spouse Smoking Status: Never smoker alcohol intake: former Discharge Assessment & Plan Assessment and Plan Assessment: Patient progressing as expected. Plan of Treatment: Weightbearing as tolerated, anterior hip precautions Aspirin 81 mg b.i.d. for DVT prophylaxis Multimodal pain management Wound care reviewed. Follow up outpatient orthopedic clinic in 2 weeks for recheck as scheduled Discharge home today after physical therapy if safe for home environment. Discharge Plan Discharge Plan Patient Disposition: Home Discharge orders & Medications Discharge Orders: Discharge (Order); Ordered 01/24/24 Ordered By: Salvatore Valadez Prescriptions: New acetaminophen 325 mg Tablet 650 mg PO Q6H Qty: 60 0RF aspirin 81 mg Tablet,Delayed Release (Dr/Ec) 81 mg PO BID Qty: 90 0RF docusate sodium 100 mg Capsule 100 mg PO BID Qty: 10 0RF ibuprofen 600 mg Tablet 600 mg PO Q6H Qty: 60 0RF oxycodone 5 mg Tablet 5 mg PO Q3H PRN (Reason: Pain, Severe (7-10)) Qty: 30 0RF Continued midodrine 10 MG tablet 10 mg PO DAILY Qty: 0 multivitamin [Multiple Vitamins] 1 EACH tablet 1 tab PO QDAY Qty: 0 losartan 50 MG tablet 50 mg PO BEDTIME Qty: 0 paroxetine HCl [Paxil] 10 mg Tablet 10 mg PO DAILY pantoprazole 40 mg Tablet,Delayed Release (Dr/Ec) 40 mg PO DAILY levothyroxine [Synthroid] 125 mcg Tablet 125 mcg PO DAILY polyethylene glycol 3350 [Miralax] 17 gram/dose Powder 17 g PO DAILY famotidine 40 mg Tablet 40 mg PO DAILY tafluprost (PF) [Zioptan (PF)] 0.0015 % Dropperette 1 drp ophthalmic (eye) BEDTIME prednisolone acetate (PF) 1 % Drops,Suspension 1 drp EYE-LEFT QID Follow up/Referrals: Nora Hartmann MD [Primary Care Provider] - Gigi Villalobos MD [Physician] - 02/05/24 2:20 pm (Follow up w/ Salvatore Valadez PA-C, at [facility] office in [place].) Diet/Activity/Treatments Diet: Diet as Tolerated Activity: Weightbearing as tolerated. Anterior hip precautions. Cold/Heat Therapy: Ice to hip as needed for pain. Skin/Wound/Dressing Care Report to your healthcare provider any signs of infection, such as:: chills, fever, night sweats, unusual drainage and unusual redness Dressing: May shower. Leave dressing in place until follow up in office. No bathing or otherwise soaking incision. Call the office if the dressing becomes saturated inside. Visit Report/Discharge Packet Instructions: DI for Hip Replacement, DI for Prescription Opioid Use Stand Alone Forms: Patient Portal/API, Surgery Discharge Discharge Data Primary Care Provider: Nora Hartmann Attending Provider: Gigi Villalobos VTE Deep Vein Thrombosis/Pulmonary Embolism Present on Admission: No
--- NOTE | 2024-01-24 10:25 | PT.IIE ---
Current Diagnoses Unilateral primary osteoarthritis, left hip (01/23/24) Surgery Performed Operation Date: 01/23/24 10:45 Actual Procedures p Total Hip Arthroplasty/Anterior Approach(Left) - Gigi Villalobos MD Surgical History (Last Updated 01/12/24 @ 14:25 by Bee Hooker, RN) History of arthroscopy of right shoulder History of bilateral oophorectomy History of bladder surgery History of corneal transplant History of esophagogastroduodenoscopy (EGD) History of hysterectomy History of lumpectomy of both breasts History of prosthetic unicompartmental arthroplasty of right knee History of surgery History of tonsillectomy and adenoidectomy 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) Hx of appendectomy Hx of arthroscopy of right knee Hx of bilateral cataract extraction Hx of BSO (bilateral salpingo-oophorectomy) Hx of cholecystectomy Hx of colonoscopy Hx of dilation and curettage Hx of foot surgery Hx of laminectomy Hx of removal of cyst Hx of thumb surgery Hx of thyroidectomy S/P epidural steroid injection (09/2021) S/P foot surgery, left S/P foot surgery, right (11/22/16) Status post reverse arthroplasty of right shoulder (08/11/17) Medical History (Last Updated 01/12/24 @ 15:01 by Bee Hooker, DI) Anesthesia complication Blepharitis of both eyes Chest pain, non-cardiac Colon polyps Concussion (07/2016) DDD (degenerative disc disease) Diverticulosis Dysphagia Easy bruisability Esophageal dysmotility Fuchs' corneal dystrophy Generalized headaches GERD (gastroesophageal reflux disease) Glaucoma Hearing loss Hemorrhoids Hiatal hernia HLD (hyperlipidemia) HTN (hypertension) Hypothyroid Irritable bowel syndrome with diarrhea Lichen planus Mastocytic enterocolitis (2016) Orthostatic hypotension Presence of neurostimulator Presence of neurostimulator (05/2023) Shingles SOB (shortness of breath) Syncope Urinary incontinence Vasovagal syncopes Vertigo Physical Therapy Inpatient Evaluation/Re-Eval M1 PT/OT-IP Prior Functional Status Start: 01/23/24 17:57 Freq: NEEDED Status: Discharge Protocol: Document 01/24/24 10:25 AB (Rec: 01/24/24 12:32 AB [id number]) Medical Review Prior Functional Status Medical History Reviewed Yes Communication able to make needs known Mobility and Gait pt stated that she was modified independent with all mobilities and ambulation using a 4WW Social History Household Members spouse Living Arrangements House Number of Stairs To Enter/Railing? ramp to enter Home Environment Standard Height Toilet,Walk in Shower,Ramp Home Equipment Front Wheel Walker,Four Wheel Walker,Shower Seat with Backrest,Grab Bars In Shower M2 PT-IP Current Condition Start: 01/23/24 17:57 Freq: NEEDED Status: Discharge Protocol: Document 01/24/24 10:25 AB (Rec: 01/24/24 12:32 AB [id number]) Physical Therapy Current Condition Current Condition Evaluation Date 01/24/24 Treatment Diagnosis s/p L YESSENIA anterior; difficulty in walking Onset Date 01/23/24 M3 PT-IP Subjective Start: 01/23/24 17:57 Freq: NEEDED Status: Discharge Protocol: Document 01/24/24 10:25 AB (Rec: 01/24/24 12:32 AB [id number]) Subjective Physical Therapy Visit Type Type Initial Evaluation Visit Start Time 10:25 Visit Stop Time 11:00 Number of [employer]AURANT GREETER Visits 0 Physical Therapy Visit Comments Patient Comments agreeable to do PT Therapy Pain Assessment Pain When Pain Assessed At Rest Location Left Hip Scale Used pain scale not stated Pain Management Techniques Distraction,Modification of Treatment,Re-positioning, Timing of Activity with Medications M4 PT-IP Mobility and Gait Start: 01/23/24 17:57 Freq: NEEDED Status: Discharge Protocol: Document 01/24/24 10:25 AB (Rec: 01/24/24 12:32 AB [id number]) PT-Bed Mobility Assessment Supine to Sit Supine to Sit Standby Assistance Sit to Supine Sit to Supine Standby Assistance PT-Transfer Assessment Sit to and From Stand Sit to and from Stand Standby Assistance,Contact Guard Assistance,1 Person Assistance,Use of Upper Extremities Equipment Transfer Assistive Device Gait Belt,Front Wheeled Walker Orthotic/Prosthetic Devices or Brace: No Transfers Transfer Destination Bed,Chair Transfer Technique ambulated Transfer Ability Level of Assist Standby Assistance,Contact Guard Assistance,1 Person Assistance,Use of Upper Extremities Comments Mobility Comments pt sitting on the chair and spouse in room with pt. educated pt regarding anterior hip precautions and pt needed repetitions and cues to recall. pt completed sit to stand from chair CGA and ambulated in room using FWW SBA to CGA and cues for hip precautions. pt sat on EOB and completed sit <>supine SBA and cues for techniques. educated spouse on what and how to instruct/cue pt if needed. spouse understood. pt able to sit on EOB SBA. caregiver training conducted. educated spouse on how to use safety belt and how to assist pt. spouse was able to put safety belt on pt and assisted pt with sit<>stand, ambulation using FWW in room ~ 40 ft with cues for safety. pt sat on chair. positioned pt on the chair. call light and table placed within reach. informed pt and spouse to use FWW at this time vs 4WW for safety and pt agreed. pt and spouse without further concerns. Gait Assessment Gait Gait Assistance Required: Standby Assistance,Contact Guard Assist Distance (Feet) 40 Able to Maintain Weight Bearing Status Yes During Gait Assistive Devices Assistive Device Gait Belt,Front Wheeled Walker Orthotic/Prosthetic Devices or Brace: No Gait Deviations General Gait Pattern Decreased Feet Clearance Factors Limiting Gait Function Factors Limiting Gait Function Decreased Activity Tolerance, Decreased Strength,Limited Range of Motion,Pain,Poor Balance,Poor Safety Awareness PT-Balance Assessment Sitting Balance and Reactions Static Sitting Balance Ability Normal Dynamic Sitting Balance Ability Good Standing Balance and Reactions Static Standing Balance Ability Fair Dynamic Standing Balance Ability Fair Device Used FWW M5 PT-IP Objective Assessments Start: 01/23/24 17:57 Freq: NEEDED Status: Discharge Protocol: Document 01/24/24 10:25 AB (Rec: 01/24/24 12:32 AB [id number]) Orientation Orientation/Cognition Level of Alertness Alert Orientation Name Safety Awareness Decreased Safety Awareness Memory Description Short Term Impaired Gross Range of Motion Lower Extremity ROM Assessment Within Functional Limits Strength Lower Extremity Strength Assessment Left Impaired Hip 3-/5 Knee 3+/5 Muscle Tone Muscle Tone WNL Yes M6 PT-IP Treatment Start: 01/23/24 17:57 Freq: NEEDED Status: Discharge Protocol: Document 01/24/24 10:25 AB (Rec: 01/24/24 12:32 AB [id number]) Physical Therapy Treatment Education Education Provided Precautions,Weight Bearing Status,Post-Op Packet,Safety M7 PT-IP Assessment and Plan Start: 01/23/24 17:57 Freq: NEEDED Status: Discharge Protocol: Document 01/24/24 10:25 AB (Rec: 01/24/24 12:32 AB [id number]) PT Summary Assessment and Plan Potential Rehabilitation Potential Fair Status of Condition at Evaluation Stable Summary Impairments Pain,ROM,Strength,Balance, Coordination,Sensation,Tone, Cognition,Bed Mobility, Transfers,Gait,Activity Tolerance Assessment Summary pt is an 88 y/o F s/p L YESSENIA anterior approach POD 1. pt has L hip anterior precautions and is WBAT. pt requiring SBA to CGA with mobility using FWW. pt plans to go home with spouse to assist her. caregiver training conducted and spouse was able to assist pt. pt may go home when medicallys table. Goals Bed Mobility Goal Independent Transfer Goal Independent,Front Wheeled Walker Gait Goal Independent,Front Wheel Walker Gait Distance 200 Days to Meet Goals 5 Frequency of Treatment Frequency Of Treatment Twice a Day Treatment Plan Physical Therapy Treatment Plan Bed Mobility Training,Transfer Training,Gait Training, Therapeutic Exercise,Balance Retraining,Post Op Education, Discharge Planning,Hot or Cold Pack,Neuromuscular Re-ed, Coordination Retraining,Manual Therapy Precautions Anterior Hip Precautions No Hip Extension,No Hip External Rotation Weight Bearing Status Weight Bearing Status Weight Bear as Tolerated Allowed Weight Bearing Amount (enter % LLE WBAT or #) (%) Recommendations To Nursing Amount of Assist Needed 1 Person Assist Discharge Recommendations PT Discharge Recommendations Home with Assistance, Outpatient PT Transportation Needs at Discharge Private Vehicle
== END 2024-01-24 11:30 | disposition home or self-care (01) ==
LOC: OR 09:16 → AC 09:19
PROVIDERS: Family Provider Internal Medicine; PCP Internal Medicine; Referring Provider Orthopaedic Surgery; Visit Provider Orthopaedic Surgery Adult Reconstructive Orthopaedic Surgery
PROC: (CPT 27130; principal; 2024-01-23 10:45)
DX: M16.12 Unilateral primary osteoarthritis, left hip (principal)
CPT/HCPCS: 27130; 36415; 73502; 76000; 85014; 85018; 97161; 97530; C1776; A9270; J0690; J1100; J1170; J2250; J2405; J2704; J3010